=== PATIENT | female | born 1965 | race Caucasian/White ===

== ENCOUNTER 2021-09-21 10:49 | Day surgery (SDC) | payer OTHER ==
[2021-09-15 15:46] VITALS: BMI 26.5
[2021-09-21 12:26] VITALS: RESP 20; TEMP 97.6
[2021-09-21 12:52] VITALS: BP 90/62; PULSE 61
== END 2021-09-21 13:10 | disposition home or self-care (01) ==
LOC: FASU-ENDO 10:49
PROVIDERS: ATTEND Internal Medicine Gastroenterology
PROC: 0DB68ZX Excision of Stomach, Via Natural or Artificial Opening Endoscopic, Diagnostic (ICD-10-PCS; 2021-09-21)
PROC: 0DB48ZX Excision of Esophagogastric Junction, Via Natural or Artificial Opening Endoscopic, Diagnostic (ICD-10-PCS; 2021-09-21)
PROC: 0DB98ZX Excision of Duodenum, Via Natural or Artificial Opening Endoscopic, Diagnostic (ICD-10-PCS; principal; 2021-09-21 11:58)
DX: K29.50 Unspecified chronic gastritis without bleeding (principal); K21.00 Gastro-esophageal reflux disease with esophagitis, without bleeding; R10.13 Epigastric pain
CPT/HCPCS: 88305-TC; 88342-TC

== ENCOUNTER 2022-04-19 09:45 | Day surgery (SDC) | payer OTHER ==
[2022-04-13 11:18] VITALS: BMI 23.3
[2022-04-19] MEDS ORDERED: PROPOFOL 40 ML ONE (11:03)
[2022-04-19 11:39] VITALS: PULSE 69; TEMP 97.9
[2022-04-19 12:34] VITALS: BP 101/59; RESP 18
== END 2022-04-19 12:20 | disposition home or self-care (01) ==
LOC: FASU-ENDO 09:45
PROVIDERS: ATTEND Internal Medicine Gastroenterology
PROC: 0DJD8ZZ Inspection of Lower Intestinal Tract, Via Natural or Artificial Opening Endoscopic (ICD-10-PCS; principal; 2022-04-19 11:12)
DX: Z12.11 Encounter for screening for malignant neoplasm of colon (principal); K64.1 Second degree hemorrhoids; K57.30 Diverticulosis of large intestine without perforation or abscess without bleeding